=== PATIENT | female | born 1935 | race Caucasian/White ===

== ENCOUNTER → 2017-02-01 | Outpatient (CLI) | payer MEDICARE, BC ==
[~2017-02-01] MED LIST: ACIDOPHILUS1 CAP PO; AZTREONAM2 GM IV; CITRACAL-VIT D1 EAC1 PO; CLARITIN10 MG PO; DIFLUCAN100 MG PO; DIPHENHYDRAMINE50 M1 PO; EYE VITAMIN-MI1 EACH PO; FERROUS SULFAT325 M1 PO; FLAGYL500 MG IV; FLAGYL500 MG PO; FLONASE ALLER15.8 ML PO; FLONASE16 GM INH; FLONASE16 GM NASBOTH; HYDROCHLOROTHIA25 MG PO; IBUPROFEN600 MG PO; K-TAB ER20 MEQ PO; MERREM1 G1 IV; MILK OF MAGNESI30 ML PO; MIRALAX17 GM PO; MOBIC7.5 MG PO; MOTRIN IB200 MG PO; NORVASC5 MG PO; NUCYNTA50 MG PO; OXYCODONE HCL5 MG PO; PHENERGAN25 M1 PO; PREDNISONE10 MG PO; PREDNISONE5 MG PO; PRILOSEC20 MG PO; PRINIVIL5 MG PO; PROSIGHT1 TAB PO; PROTONIX40 MG PO; SULFAMETHOXAZO1 EACH PO; SYNTHROID50 MCG PO; VITAMIN B-121000 MCG PO; XANAX0.5 MG PO; ZANAFLEX2 MG PO
== END | disposition short-term general hospital (02) ==
LOC: CLRHEU 13:34
DX: R70.0 Elevated erythrocyte sedimentation rate (principal); K57.80 Diverticulitis of intestine, part unspecified, with perforation and abscess without bleeding; L02.211 Cutaneous abscess of abdominal wall; R53.1 Weakness

== ENCOUNTER → 2017-03-21 | Outpatient (CLI) | payer MEDICARE, BC | END | disposition short-term general hospital (02) | LOC: CLRHEU 11:55 | DX: M35.3 Polymyalgia rheumatica (principal); M31.6 Other giant cell arteritis; N73.9 Female pelvic inflammatory disease, unspecified; R06.02 Shortness of breath; R70.0 Elevated erythrocyte sedimentation rate; R79.82 Elevated C-reactive protein (CRP); H54.7 Unspecified visual loss ==

== ENCOUNTER 2017-07-27 13:52 | Emergency (ER) | payer MEDICARE, BC ==
[~2017-07-27] VITALS: Ht 167.6 cm; Wt 81.6 kg
[~2017-07-27 13:52] MED LIST changes: -PRINIVIL5 MG PO
[2017-07-27] MEDS ORDERED: PRINIVIL5 MG PO (14:52)
== END 2017-07-27 16:23 | disposition short-term general hospital (02) ==
LOC: ER 13:52
DX: R42 Dizziness and giddiness (principal); M19.90 Unspecified osteoarthritis, unspecified site; Z88.0 Allergy status to penicillin; Z88.5 Allergy status to narcotic agent; Z88.6 Allergy status to analgesic agent; Z88.1 Allergy status to other antibiotic agents; Z88.8 Allergy status to other drugs, medicaments and biological substances; Z79.899 Other long term (current) drug therapy; Z79.52 Long term (current) use of systemic steroids